=== PATIENT | male | born 1950 | race American Indian/Alaskan Native ===

== ENCOUNTER 2017-04-02 07:00 | Inpatient (IN) | payer SELFPAY ==
[2017-04-02] MEDS ORDERED: PEPCID IV ONE (07:20)
[2017-04-02] MEDS ORDERED: NACL 0.9% 500 ML 500 ML IV ONE (07:20)
--- NOTE | 2017-04-02 07:24 | Emergency Department Report ---
HPI - General Chief Complaint: Allergic Reaction Time Seen by Provider: 04/02/17 07:01 - HPI HPI: The patient is a 66-year-old male who presents for evaluation of swelling of the tongue. The patient reports continuous progressive and constant swelling of the tongue since 2 AM, currently severe, improved with Benadryl, and associated with tightness of throat. The patient states that he has been unable to close his mouth due to the large surface of his tongue since approximate 6 AM. The patient denies dyspnea, neck stiffness, dysphagia, stridor, drooling, difficulty tolerating secretions, dysphonia, hoarseness of voice, abdominal pain. He admits to lisinopril use. ED Past Medical Hx - Past Medical History Hx Hypertension: Yes Additional medical history: Vertigo - Surgical History Additional Surgical History: Right Knee replacement - Social History Smoking Status: Current Every Day Smoker Substance Use Type: Alcohol - Medications Home Medications: Home Medications Medication Instructions Recorded Confirmed Last Taken Type Aspirin [Aspirin BABY CHEW TAB] 162 mg PO QDAY 05/07/15 04/02/17 05/07/15 History Pravastatin (Nf) [Pravachol] 40 mg PO QHS 05/07/15 04/02/17 05/07/15 History Carvedilol [Coreg] 25 mg PO BID #60 tablet 04/03/17 Unknown Rx Famotidine [Pepcid] 20 mg PO BID #20 tablet 04/03/17 Unknown Rx Prednisone [predniSONE] 20 mg PO QDAY #7 tab 04/03/17 Unknown Rx Triamter/Hctz 37.5-25 mg 1 tab PO QDAY #30 tablet 04/03/17 Unknown Rx [Maxzide-25] ED Review of Systems ROS: Stated complaint: TONGUE SWOLLEN/SHEN Other details as noted in HPI Constitutional: denies: fever ENT: Reports tongue swelling denies: throat or neck pain Respiratory: denies: cough, shortness of breath Cardiovascular: denies: chest pain Endocrine: denies unexplained weight loss or gain Gastrointestinal: denies: abdominal pain, nausea Genitourinary: denies: dysuria Musculoskeletal: denies: leg swelling Skin: denies: rash Neurological: denies: headache Hematological/Lymphatic: denies: easy bleeding or easy bruising Psych: denies sadness or hopelessness Physical Exam - Physical Exam Vital Signs: Vital Signs 04/02/17 04/02/17 04/02/17 06:56 07:00 07:10 Pulse Rate 88 87 Respiratory 17 11 L Rate Blood Pressure 141/92 155/86 O2 Sat by Pulse 97 98 98 Oximetry 04/02/17 07:17 Pulse Rate 85 Respiratory 14 Rate Blood Pressure 141/92 O2 Sat by Pulse 98 Oximetry Physical Exam: General: well-nourished, well-developed, no acute distress Head: Normocephalic, atraumatic Eyes: normal sclera ENT: Severe swelling of the tongue or lips present, unable to see base of uvula , Mallampati 4, no pooling of secretions in the mouth, Mucous membranes are pink and moist Neck: trachea midline, neck supple, No neck stiffness, no cervical adenopathy Respiratory: Breath sounds equal bilaterally, no wheezing, rales, or rhonchi Cardio: S1 and S2 present, no murmurs, rubs, gallops, capillary refill is brisk Abdomen: Normoactive bowel sounds, soft abdomen, no rigidity, no guarding or rebound tenderness Chest WALL/Back: No tenderness to palpation of the chest wall, no CVA tenderness with percussion Musc: No pitting edema Skin: No rash Neuro: no facial drooping, normal speech Psych: Normal affect ED Course Vital Signs 04/02/17 04/02/17 04/02/17 06:56 07:00 07:10 Pulse Rate 88 87 Respiratory 17 11 L Rate Blood Pressure 141/92 155/86 O2 Sat by Pulse 97 98 98 Oximetry 04/02/17 07:17 Pulse Rate 85 Respiratory 14 Rate Blood Pressure 141/92 O2 Sat by Pulse 98 Oximetry ED Medical Decision Making - Lab Data Result diagrams: 04/03/17 08:21 04/03/17 08:21 - Medical Decision Making The patient was seen and examined by myself. The patient is placed on a family law specialist and continuous pulse ox. On initial evaluation, the patient was found to be in no distress, protecting airway, no stridor. The on-call anesthesiologist was consulted. He presented to the emergency department and evaluated the patient. He recommended close monitoring and observation and withholding from intubating the patient at this time, as the patient has no stridor, difficulty with secretions, difficulty breathing, or other hard signs of impending airway compromise. Evaluation orders were placed. Lab results revealed leukocytosis of 15. Otherwise lab results are unrevealing. The patient is most in the emergency department for greater than 2 hours with significant improvement of tongue and lip swelling, although swelling persisted throughout ED course. As patient remains with significant swelling of the tongue, the patient will be admitted for close monitoring. The on-call hospitalist service was contacted. They agreed to admit the patient for further treatment and close monitoring. The ED admit order was placed. The patient was admitted in guarded condition. Critical care attestation.: If time is entered above; I have spent that time in minutes in the direct care of this critically ill patient, excluding procedure time. ED Disposition Clinical Impression: Allergic angioedema Disposition: OP ADMIT IP TO THIS HOSP Is pt being admited?: Yes Does the pt Need Aspirin: Yes Condition: Serious Time of Disposition: 07:24
[2017-04-02 07:34] LABS: Basophils % (Auto) 0.7 % (0.0-1.8); Eosinophils % (Auto) 1.5 % (0.0-4.3); Hematocrit 44.5 % (35.5-45.6); Hemoglobin 15.1 gm/dl (11.8-15.2); Mean Corpuscular HGB Conc 34 % (32-34); Mean Corpuscular Hemoglobin 32 pg (28-32); Mean Corpuscular Volume 96 fl (84-94); Platelet Count 190 K/mm3 (140-440); Red Blood Count 4.66 M/mm3 (3.65-5.03); Red Cell Distribution Width 16.8 % (13.2-15.2); White Blood Count 15.4 K/mm3 (4.5-11.0)
--- NOTE | 2017-04-02 07:39 | Admit Criteria Form ---
Admission Criteria Documentation: HEAD AND NECK DISEASE [facility] Clinical Indications for Admission to Inpatient Care ( Place 'X' for any and all applicable criteria): Hospital admission is needed for appropriate care of the patient because of ANY ONE of the following (1)(2): [ ]I. Severe sinusitis as indicated by ANY ONE of the following (6)(13)(21) [ ]a) Suspected [employer]IT[employer] infection [ ]b) Bacteremia [ ]c) Hemodynamic instability [ ]d) Outpatient and observation care antibiotic treatment have failed or are not considered appropriate [ ]e) Surgical drainage needed that cannot be performed on an outpatient basis or observation. setting [ ]f) Suspected orbital involvement [ ]II. Acute glaucoma unresponsive to emergency treatment that requires medication or other treatment beyond the scope of observation care (1) [ ]III. Severe eye infection or inflammation (eg, uveitis) which is unresponsive to emergency treatment and requires medication or other treatment beyond the scope of observation care (1)(2)(3)(4) [ ]IV. Severe epistaxis requiring posterior packing (5)(6) [ ]V. Acute bacterial labyrinthitis(6)(7) [ ]. Viral labyrinthitis with symptoms uncontrollable on an outpatient or observation care basis (6)(7) [ ]VII. Severe necrotizing external otitis unresponsive to outpatient and observation care treatment(6) [ ]VIII. Otitis media requiring treatment beyond the scope of outpatient and observation care, as indicated by presence or persistence of ANY ONE of the following(6)(8)(9): [ ]a) Hemodynamic instability [ ]b) Mastoiditis [ ]c) Suspected [employer]CHIT[employer] infection [ ]d) Bacteremia [ ]e) Surgical drainage needed that cannot be performed as an outpatient. or in an observation setting. [ ]IX. Epiglottitis or supraglottitis(6)(11)(12)(13)(14) [ ]X. Stridor or laryngospasm (unresponsive to emergency management) (6)(11)( 12)(13)(14) [ ]XI. Acute pharyngitis or tonsillitis and ANY ONE of the following (14)(15)( 16): [ ]a) Hemodynamic instability remaining after emergency or observation level care (as appropriate) [ ]b) Surgical drainage needed that cannot be performed in outpatient or observation setting [ ]c) Mediastinitis [ ]d) Thrombophlebitis of internal jugular vein (Lemierre syndrome) [ ]XII. Sialoadenitis and ANY ONE of the following (17) (18) [ ]a) Hemodynamic instability remaining after emergency or observation level care(as appropriate) [ ]b) Surgical drainage needed that cannot be performed in outpatient or observation setting [ ]XIII. Airway blockage or inability to swallow (6)(12)(19)(20) [ ]XIV.Complicated infection indicated by ANY ONE of the following(6)(13)(21)(22 ): [ ]a) Abscess or swelling causing airway difficulty(12) [ ]b) Bacteremia [ ]c) Hemodynamic instability [ ]d) Suspected [employer]IT[employer] infection [ ]e) Outpatient and observation care antibiotic treatment have failed or are not considered appropriate [ ]f) Surgical drainage needed that cannot be performed on an outpatient basis or observation setting [ ]g) Other management need that cannot be performed in outpatient or observation setting: [ ]XV. Severe trauma requiring inpatient medical treatment of eye, head, pharynx, or airway (1)(23)(24)25)056) [ ]XVI. Ischemic optic neuropathy(11) [X ]XVII.Head or Neck Disease condition and ANY ONE of the following: [X]a) Symptom or finding for which emergency and observation care have failed or are not considered appropriate (Also use General Criteria: Observation Care as appropriate) [ ]b) Presence of ANY ONE of the following: [ ]i) A General Admission Criteria [ ]ii) A Pediatric General Admission Criteria The [email or web address] content [facility] by [facility] has been revised. The portions of the content which have been revised are identified through the use of italic text or in bold, and [facility] has neither reviewed nor approved the modified material. All other unmodified content is copyright [facility]. Please see references footnoted in the original [facility] edition 2016 Admission Criteria Met: Yes
[2017-04-02 07:50] LABS: Albumin 3.5 g/dL (3.9-5); Albumin/Globulin Ratio 1.1 %; BUN/Creatinine Ratio 15.33; Bilirubin,Total 0.5 mg/dL (0.1-1.2); Calcium 8.5 mg/dL (8.4-10.2); Chloride 99.4 mmol/L (98-107); Potassium 3.6 mmol/L (3.6-5.0); Total Protein 6.8 g/dL (6.3-8.2)
--- NOTE | 2017-04-02 08:16 | XRay Report ---
X-RAY SOFT TISSUE NECK TWO VIEWS: 04/02/17 07:19:00 CLINICAL: Angioedema. FINDINGS: The neck is short and structures are crowded. Increased soft tissue at the inferior mandible and abnormal soft tissue density surrounding the hyoid bone. The epiglottis is not clearly imaged. Carotid artery calcifications. The bones are unremarkable. IMPRESSION: Soft tissue edema involving the superficial soft tissues as well as hypopharynx.
--- NOTE | 2017-04-02 08:18 | XRay Report ---
AP CHEST : 04/02/17 07:41 CLINICAL: Chest pain. COMPARISON:05/07/15 FINDINGS: The heart is large. Mild central vascular congestion. The lungs are underexpanded but clear. No airspace disease or pleural effusion. The bones and soft tissues are unremarkable. IMPRESSION: Stable cardiomegaly. No CHF.
[2017-04-02] MEDS ORDERED: MILK OF MAGNESIA PO PRN (09:52)
[2017-04-02] MEDS ORDERED: DULCOLAX PR PRN (09:52)
[2017-04-02] MEDS ORDERED: ZOFRAN IV PRN (09:52)
[2017-04-02] MEDS ORDERED: TYLENOL PO PRN (09:52)
[2017-04-02] MEDS ORDERED: MORPHINE IV PRN (09:52)
--- NOTE | 2017-04-02 09:57 | History and Physical Report ---
History of Present Illness Date of examination: 04/02/17 Chief complaint: allery reaction History of present illness: This is a 66 y/o male with h/o hypertension presented with facial swelling. Past medical History: h/o hypertension Past surgical History: s/p rt knee replacement Social History: Lives with family, denies any smoking, drinking and elicit drug abuse. Family History: Significant for HTN Review of System: Constitutional: no fever, no chills, no weight loss Ears, eyes, nose, mouth and throat: no nasal congestion, no nasal discharge, no sinus pressure, no vision change, no red eye. + tongue swelling Neck: No neck pain or rigidity. Cardiovascular: No chest pain, no orthopnea, no palpitations, no leg swelling Respiratory: No shortness of breath, no cough, no congestion, no wheezing Gastrointestinal: no abdominal pain, no nausea, no vomiting Genitourinary : no dysuria, no hematuria Musculoskeletal: no joint swelling or muscle ache Integumentary: no rash, no pruritis Neurological: no parathesias, no numbness, no tingling Endocrine: no cold or heat intolerance, no polyuria or polydipsia Hematologic/Lymphatic: no easy bruising, no easy bleeding, no gland swelling Allergic/Immunologic: no urticaria, + angioedema. Medications and Allergies Allergies Allergy/AdvReac Type Severity Reaction Status Date / Time No Known Allergies Allergy Verified 05/07/15 13:07 Home Medications Medication Instructions Recorded Confirmed Last Taken Type Aspirin [Aspirin BABY CHEW TAB] 162 mg PO QDAY 05/07/15 04/02/17 05/07/15 History Carvedilol [Coreg] 25 mg PO BID 05/07/15 04/02/17 05/07/15 History Hydrochlorothiazide [HCTZ] 12.5 mg PO DAILY 05/07/15 04/02/17 05/07/15 History Lisinopril [Zestril TAB] 20 mg PO QDAY 05/07/15 04/02/17 05/07/15 History Pravastatin (Nf) [Pravachol] 40 mg PO QHS 05/07/15 04/02/17 05/07/15 History Metolazone [Zaroxolyn] 5 mg PO QDAY 04/02/17 04/02/17 Unknown History Naproxen [Naprosyn] 500 mg PO BID 04/02/17 04/02/17 Unknown History Active Meds: Active Medications Acetaminophen (Tylenol) 650 mg PO Q4H PRN PRN Reason: Pain MILD(1-3)/Fever >100.5/ERIC Albuterol/Ipratropium (Duoneb 0.5 Mg-3 Mg/3 Ml Soln) 1 ampul IH Q6HRT CHERYLE Bisacodyl (Dulcolax) 10 mg [place] QDAY PRN PRN Reason: Constipation unrelieved by MOM Diphenhydramine HCl (Benadryl) 25 mg IV Q6H CHERYLE Dextrose/Sodium Chloride (D5/0.45ns) 1,000 mls @ 100 mls/hr IV DIRECT CHERYLE Magnesium Hydroxide (Milk Of Magnesia) 30 ml PO Q4H PRN PRN Reason: Constipation Methylprednisolone Sodium Succinate (Solu-Medrol) 125 mg IV Q8HR ONE Stop: 04/02/17 09:53 Exam - Physical Exam Narrative exam: GENERAL: This is well-developed well-nourished lying on bed appeared to be in no discomfort. HEENT: Normocephalic. Atraumatic. Extraocular motions are intact. No conjunctival congestion or icterus. Patient has moist mucous membranes. External auditory canal and nares patent bilaterally. tongue appeared to be swollen and sticking out from mouth NECK: Supple. Trachea midline. No JVD, thyromagaly or lymphadenopathy. CHEST/LUNGS: Clear to auscultated bilaterally. There is no respiratory distress noted, breathing nonlabored. No wheezes crackles or rhonchi. HEART/CARDIOVASCULAR: Regular in rate and rhythm. PMI at the apex. There is no gallop rub or murmur. ABDOMEN: Abdomen is soft, nontender. Patient has normal bowel sounds. There is no abdominal distention. No organomagaly or rigidity. SKIN: There is no rash, no erythrema. There is no diaphoresis. Warm and dry. NEUROLOGY: The patient is awake, alert, and oriented. The patient is cooperative. The patient has normal speech. No focal motor deficit. MUSCULOSKELETAL: No joint effusion or tenderness. Muscle strength equal bilaterally. No muscle wasting. EXTRIMITY: No edema, cyanosis or clubbing. PSYCH: No depression or anxiety noted. Cooperative. - Constitutional Vitals: Temp Pulse Resp BP Pulse Ox 87 24 159/89 96 04/02/17 09:30 04/02/17 09:30 04/02/17 09:30 04/02/17 09:30 Results - Labs CBC & Chem 7: 04/02/17 07:09 04/02/17 07:09 Labs: Abnormal lab results 04/02/17 04/02/17 Range/Units 07:09 07:09 WBC 15.4 H (4.5-11.0) K/mm3 MCV 96 H (84-94) fl RDW 16.8 H (13.2-15.2) % [place] % (Auto) 8.2 H (0.0-7.3) % [place] # 1.3 H (0.0-0.8) K/mm3 Seg Neutrophils # 10.7 H (1.8-7.7) K/mm3 BUN 23 H (9-20) mg/dL Albumin 3.5 L (3.9-5) g/dL - Imaging and Cardiology Chest x-ray: report reviewed Assessment and Plan Angioedema - likely from lisinopril - start on benadryl, and solumedrol HTN - resume home meds except lisinopril
[2017-04-02] MEDS ORDERED: D5/0.45NS 1,000 ML IV SCH (10:00)
[2017-04-02] MEDS: BENADRYL IV SCH ×3 (10:20→21:56)
[2017-04-02] MEDS: DUONEB 0.5 MG-3 MG/3 ML SOLN IH SCH ×2 (14:20→20:09)
[2017-04-02] MEDS ORDERED: DUONEB 0.5 MG-3 MG/3 ML SOLN IH ONE (20:06)
--- NOTE | 2017-04-02 21:37 | Consultation ---
History of Present Illness Consult date: 04/02/17 Requesting physician: KARAN HE Reason for consult: other (Angioedema) History of present illness: PULMONARY/CCM CONSULT NOTE (Full dictation # ) Please see dictated notes for full details Medications and Allergies Allergies Allergy/AdvReac Type Severity Reaction Status Date / Time No Known Allergies Allergy Verified 05/07/15 13:07 Home Medications Medication Instructions Recorded Confirmed Last Taken Type Aspirin [Aspirin BABY CHEW TAB] 162 mg PO QDAY 05/07/15 04/02/17 05/07/15 History Carvedilol [Coreg] 25 mg PO BID 05/07/15 04/02/17 05/07/15 History Hydrochlorothiazide [HCTZ] 12.5 mg PO DAILY 05/07/15 04/02/17 05/07/15 History Lisinopril [Zestril TAB] 20 mg PO QDAY 05/07/15 04/02/17 05/07/15 History Pravastatin (Nf) [Pravachol] 40 mg PO QHS 05/07/15 04/02/17 05/07/15 History Metolazone [Zaroxolyn] 5 mg PO QDAY 04/02/17 04/02/17 Unknown History Naproxen [Naprosyn] 500 mg PO BID 04/02/17 04/02/17 Unknown History Active Meds: Active Medications Acetaminophen (Tylenol) 650 mg PO Q4H PRN PRN Reason: Pain MILD(1-3)/Fever >100.5/ERIC Albuterol/Ipratropium (Duoneb 0.5 Mg-3 Mg/3 Ml Soln) 1 ampul IH Q6HRT [facility] Last Admin: 04/02/17 20:09 Dose: 1 ampul Bisacodyl (Dulcolax) 10 mg [place] QDAY PRN PRN Reason: Constipation unrelieved by MOM Diphenhydramine HCl (Benadryl) 25 mg IV Q6H [facility] Last Admin: 04/02/17 15:44 Dose: 25 mg Dextrose/Sodium Chloride (D5/0.45ns) 1,000 mls @ 100 mls/hr IV DIRECT CHERYLE Magnesium Hydroxide (Milk Of Magnesia) 30 ml PO Q4H PRN PRN Reason: Constipation Morphine Sulfate (Morphine) 2 mg IV Q4H PRN PRN Reason: Pain, Moderate (4-6) Ondansetron HCl (Zofran) 4 mg IV Q8H PRN PRN Reason: N/V unrelieved by Reglan Physical Examination Vital signs: Vital Signs Pulse Ox 97 04/02/17 06:56 Results - Laboratory Findings CBC and BMP: 04/02/17 07:09 04/02/17 07:09
[2017-04-03] MEDS: DUONEB 0.5 MG-3 MG/3 ML SOLN IH SCH ×2 (01:38→08:57)
[2017-04-03] MEDS: BENADRYL IV SCH ×2 (05:00→10:19)
[2017-04-03 08:51] LABS: Basophils % (Auto) 0.3 % (0.0-1.8); Hematocrit 44.7 % (35.5-45.6); Hemoglobin 15.1 gm/dl (11.8-15.2); Mean Corpuscular HGB Conc 34 % (32-34); Mean Corpuscular Hemoglobin 32 pg (28-32); Mean Corpuscular Volume 94 fl (84-94); Platelet Count 197 K/mm3 (140-440); Red Blood Count 4.76 M/mm3 (3.65-5.03); Red Cell Distribution Width 16.3 % (13.2-15.2); White Blood Count 16.7 K/mm3 (4.5-11.0)
[2017-04-03 09:38] LABS: Anion Gap 18 mmol/L; Blood Urea Nitrogen 24 mg/dL (9-20); Carbon Dioxide 26 mmol/L (22-30); Chloride 97.3 mmol/L (98-107); Glucose 129 mg/dL (75-100); Potassium 3.6 mmol/L (3.6-5.0); Sodium 138 mmol/L (137-145)
--- NOTE | 2017-04-03 11:46 | Discharge Summary ---
Providers - Providers Date of Admission: 04/02/17 09:52 Date of discharge: 04/03/17 Attending physician: JAMES SHERMAN Primary care physician: ASSISTANT [employer]ACH Hospitalization Reason for admission: angioedema ACEI induced Condition: Good Hospital course: 66-year-old -[place] male history of hypertension was seen in the emergency room with complaints of swelling of the tongue and was admitted with a diagnosis of ACEI induced acute angioedema He was started on intravenous Solu-Medrol and Benadryl This morning patient is doing well. His tongue swelling is completely resolved He denies any shortness of breath or difficulty in swallowing Started him on diet, which he tolerated very well He is medically stable to be discharged home He was advised never to take lisinopril He will be discharged on a short course of prednisone and H2 blockers and Benadryl His blood pressure has been stable on his home medications even after the lisinopril was discontinued He will see his primary care physician 3 days for adjustment of blood pressure medication Disposition: DC-01 TO HOME OR SELFCARE Time spent for discharge: 33 min - Discharge Diagnoses (1) Hypertension Status: Chronic Qualifiers: Hypertension type: essential hypertension Qualified Code(s): I10 - Essential (primary) hypertension Comment: Well-controlled (2) Allergic angioedema Status: Acute Qualifiers: Encounter type: E Comment: Secondary to lisinopril Resolved Core Measure Documentation - Palliative Care Palliative Care/ Comfort Measures: Not Applicable - Core Measures Any of the following diagnoses?: none Exam - Constitutional Vitals: Temp Pulse Resp BP Pulse Ox 97.8 F 82 20 137/74 100 04/03/17 07:00 04/03/17 07:00 04/03/17 07:00 04/03/17 07:00 04/03/17 07:00 General appearance: Present: no acute distress - EENT Eyes: Present: PERRL, EOM intact ENT: hearing intact, clear oral mucosa - Neck Neck: Present: supple, normal ROM. Absent: masses or JVD - Respiratory Respiratory effort: normal Respiratory: bilateral: CTA - Cardiovascular Rhythm: regular Heart Sounds: Present: S1 & S2 - Extremities Extremities: No edema - Abdominal General gastrointestinal: Present: soft, non-tender. Absent: hepatomegaly, splenomegaly - Rectal Rectal Exam: deferred - Integumentary Integumentary: Present: clear - Musculoskeletal Musculoskeletal: strength equal bilaterally - Psychiatric Psychiatric: appropriate mood/affect - Neurologic Neurologic: CNII-XII intact, no focal deficits Plan Activity: advance as tolerated Weight Bearing Status: Full Weight Bearing Diet: low fat, low cholesterol, low salt Additional Instructions: take OTC benadryl 25 mg TID for 3 days Follow up with: PRIMARY CARE, [Primary Care Provider] - 3-5 Days Prescriptions: Carvedilol [Coreg] 25 mg PO BID #60 tablet Famotidine [Pepcid] 20 mg PO BID #20 tablet Prednisone [predniSONE] 20 mg PO QDAY #7 tab Triamter/Hctz 37.5-25 mg [Maxzide-25] 1 tab PO QDAY #30 tablet
[2017-04-03 16:44] VITALS: BP 123/77
== END 2017-04-03 18:00 | disposition home or self-care (01) | DRG 916 ==
LOC: ED 07:00 → CC1 09:52 → 3A 16:43
PROVIDERS: ADMIT Internal Medicine; ATTEND Internal Medicine
DX: T78.3XXA Angioneurotic edema, initial encounter (principal); I10 Essential (primary) hypertension; F19.10 Other psychoactive substance abuse, uncomplicated; F17.200 Nicotine dependence, unspecified, uncomplicated; Z96.651 Presence of right artificial knee joint; Z82.49 Family history of ischemic heart disease and other diseases of the circulatory system
CPT/HCPCS: 36415; 70360; 71010; 80048; 80053; 85025; 93005; 93010; 94640; 96361; 96374; 96375; J1200; J2930; J7040